=== PATIENT | male | born 1990 | race African-American/Black ===

== ENCOUNTER 2017-09-15 12:43 | Inpatient (IN) | payer OTHER ==
[2017-09-15 14:00] VITALS: BMI 23.3
--- NOTE | 2017-09-15 18:24 | HP ---
CIWA Score - CIWA Score Nausea/Vomitin-Mild Nausea/No Vomiting Muscle Tremors: 3 Anxiety: 4-Mod. Anxious/Guarded Agitation: 1-Slight > Activity Paroxysmal Sweats: 1-Minimal Palms Moist Orientation: 0-Oriented Tacttile Disturbances: 2-Mild Itch/Numbness/Burn Auditory Disturbances: 0-None Visual Disturbances: 1-Very Mild Sensitivity Headache: 2-Mild CIWA-Ar Total Score: 15 Admission ROS S - HPI Chief Complaint: withdrawal symptoms Allergies/Adverse Reactions: Allergies Allergy/AdvReac Type Severity Reaction Status Date / Time No Known Allergies Allergy Verified 09/15/17 14:35 History of Present Illness: 27 yo male with hx of alcohol dependence. Denies any other medical history., Denies suicidal / homicidal ideation. Last Detox was 1999. - Ebola screening Have you traveled outside of the country in the last 21 days: No Have you had contact with anyone from an Ebola affected area: No Have you been sick,other than usual withdrawal symptoms: No - Review of Systems Constitutional: Chills, Changes in sleep EENT: reports: Blurred Vision, Throat Swelling (when throws up) Cardiac: reports: Syncope (last episode 09/05/17 from drinking) GI: reports: Indigestion Musculoskeletal: reports: Back Pain Integumentary: reports: No Symptoms Reported Neuro: reports: Headache, Numbness, Tingling, Dizziness Endocrine: reports: No Symptoms Reported Hematology: reports: No Symptoms Reported Psychiatric: reports: Orientated x3, Anxious Other Systems: Reviewed and Negative Patient History - Patient Medical History Hx Anemia: No Hx Asthma: No Hx Chronic Obstructive Pulmonary Disease (COPD): No Hx Cancer: No Hx Cardiac Disorders: No Hx Congestive Heart Failure: No Hx Hypertension: No Hx Hypercholesterolemia: No Hx Pacemaker: No HX Cerebrovascular Accident: No Hx Seizures: No Hx Dementia: No Hx Diabetes: No Hx Gastrointestinal Disorders: No Hx Liver Disease: No Hx Genitourinary Disorders: No Hx Sexually Transmitted Disorders: No Hx Renal Disease (ESRD): No Hx Thyroid Disease: No Hx Human Immunodeficiency Virus (HIV): No Hx Hepatitis C: No Hx Depression: No Hx Suicide Attempt: No Hx Bipolar Disorder: No Hx Schizophrenia: No - Patient Surgical History Past Surgical History: Yes Hx Neurologic Surgery: No Hx Cataract Extraction: No Hx Cardiac Surgery: No Hx Lung Surgery: No Hx Breast Surgery: No Hx Breast Biopsy: No Hx Abdominal Surgery: No Hx Appendectomy: No Hx Cholecystectomy: No Hx Genitourinary Surgery: No Hx Section: No Hx Orthopedic Surgery: No Hx Hysterectomy: No Other Surgical History: bilateral inguinal hernia repairs Anesthesia Reaction: No - PPD History Previous Implant?: Yes Documented Results: Negative w/o proof Implanted On Prior [facility] Admission?: No PPD to be Administered?: Yes - Reproductive History Patient is a Female of Child Bearing Age (11 -55 yrs old): No - Smoking Cessation Smoking history: Current every day smoker Have you smoked in the past 12 months: Yes Aproximately how many cigarettes per day: 3 Hx Chewing Tobacco Use: No Initiated information on smoking cessation: Yes 'Breaking Loose' booklet given: 09/15/17 - Substance & Tx. History Hx Alcohol Use: Yes Hx Substance Use: No Substance Use Type: Alcohol Hx Substance Use Treatment: Yes (1999) - Substances Abused Alcohol Route: Oral Frequency: Daily Amount used: 1 PINT VODKA Age of first use: 15 Date of Last Use: 09/15/17 Family Disease History - Family Disease History Family Disease History: Other: Grandparent (alcoholism, ), Mother ( alive and well ) Admission Physical Exam S - Vital Signs Vital Signs: Vital Signs - 24 hr 09/15/17 13:55 Temperature 97 F L Pulse Rate 103 H Respiratory 20 Rate Blood Pressure 159/86 - Physical General Appearance: Yes: Appropriately Dressed, Alcohol on Breath, Anxious HEENTM: Yes: Hearing grossly Normal, Normal ENT Inspection, Normocephalic, Normal Voice, BRENT, Pharynx Normal, Other (dry mucous membranes) Respiratory: Yes: Chest Non-Tender, Lungs Clear, Normal Breath Sounds, No Respiratory Distress, No Accessory Muscle Use Neck: Yes: No masses,lesions,Nodules, Trachea in good position Breast: Yes: Breast Exam Deferred Cardiology: Yes: Regular Rhythm, S1, S2 Abdominal: Yes: Normal Bowel Sounds, Non Tender, Flat, Soft Genitourinary: Yes: Within Normal Limits (reports no urinary symptoms) Back: Yes: Within Normal Limits, Normal Inspection, Vertebral Tenderness (mid lower back) Extremities: Yes: Normal Capillary Refill, Normal Inspection, Normal Range of Motion, Non-Tender Neurological: Yes: leather cartridge belt maker II-XII NML intact, Fully Oriented, Alert, Motor Strength 5/5, Normal Mood/Affect, Normal Response Integumentary: Yes: Normal Color, Dry, Warm, Other (poor skin turgor) Lymphatic: Yes: Within Normal Limits - Diagnostic (1) Alcohol dependence with withdrawal Current Visit: Yes Status: Acute (2) Dehydration Current Visit: Yes Status: Acute (3) Depressed affect Current Visit: Yes Status: Acute Cleared for Admission [facility] - Detox or Rehab [facility] Level of Care: Medically Managed Detox Regimen/Protocol: Librium [facility] Breath Alcohol Content Breath Alcohol Content: 0.210 Urine Drug Screen - Results Drug Screen Negative: No Urine Drug Screen Results: TCA-Tricyclic Antidepress
[2017-09-15] MEDS ORDERED: MAGNESIUM CITRATE 300 ML BOTTLE PO PRN (18:39)
[2017-09-15] MEDS ORDERED: MENTHOL/PHENOL 1 EACH UD MM PRN (18:39)
[2017-09-15] MEDS ORDERED: guaiFENesin/D-METHORPHAN HB 10 ML UNIT-DOSE CUPS PO PRN (18:39)
[2017-09-15] MEDS ORDERED: MAGNESIUM HYDROX 2400MG/30ML ORAL SUSPENSION 30 ML CUP PO PRN (18:39)
[2017-09-15] MEDS ORDERED: NICOTINE POLACRILEX 2 MG GUM BC PRN (18:39)
[2017-09-15] MEDS ORDERED: IBUPROFEN 400 MG TABLET (FP) PO PRN (18:39)
[2017-09-15] MEDS ORDERED: P-EPHED 60MG/TRIPROLIDI 2.5MG TABLET PO PRN (18:39)
[2017-09-15] MEDS ORDERED: LOPERAMIDE HCL 2 MG CAPSULE PO PRN (18:39)
[2017-09-15] MEDS ORDERED: MAG HYDROX/AL HYDROX/SIMETH 30 ML UNIT-DOSE CUP PO PRN (18:39)
[2017-09-15] MEDS ORDERED: ACETAMINOPHEN 325 MG TABLET (FP) PO PRN (18:39)
[2017-09-15] MEDS: NICOTINE 14 MG/24 HOURS TOPICAL PATCH TD SCH (19:30)
[2017-09-15] MEDS: chlordiazePOXIDE HCL 25 MG CAPSULE PO PRN (19:31)
[2017-09-15] MEDS: THIAMINE HCL 100 MG TABLET (FP) PO SCH (22:04)
[2017-09-15] MEDS: chlordiazePOXIDE HCL 25 MG CAPSULE PO SCH (22:04)
[2017-09-15 23:42] LABS: URINE APPEARANCE CLEAR; URINE BILIRUBIN NEGATIVE (NEGATIVE); URINE BLOOD NEGATIVE (NEGATIVE); URINE COLOR YELLOW; URINE GLUCOSE (UA) NEGATIVE (NEGATIVE); URINE KETONE NEGATIVE (NEGATIVE); URINE LEUK ESTERASE TRACE (NEGATIVE); URINE NITRITE NEGATIVE (NEGATIVE); URINE UROBILINOGEN NEGATIVE mg/dL (0.2-1.0)
[2017-09-15 23:45] LABS: URINE PROTEIN 1+ (NEGATIVE)
[2017-09-15 23:54] LABS: URINE MUCUS MANY
[2017-09-16] MEDS: chlordiazePOXIDE HCL 25 MG CAPSULE PO SCH ×4 (05:38→22:14)
[2017-09-16 10:10] LABS: CHLORIDE 101 mmol/L (98-107); POTASSIUM 3.5 mmol/L (3.5-5.1); SODIUM 139 mmol/L (136-145)
[2017-09-16 10:18] LABS: HEMATOCRIT 43.9 % (35.4-49); HEMOGLOBIN 14.6 GM/dL (11.7-16.9); MCH 34.3 pg (25.7-33.7); MCHC 33.4 g/dl (32.0-35.9); MEAN CELL VOLUME 102.9 fl (80-96); MEAN PLT VOLUME 9.6 fl (7.5-11.1); PLATELET COUNT 212 K/MM3 (134-434); RBC 4.26 M/mm3 (4.00-5.60); RDW 13.9 % (11.9-15.9)
--- NOTE | 2017-09-16 10:21 | PN ---
S CIWA - CIWA Score Nausea/Vomitin-Mild Nausea/No Vomiting Muscle Tremors: 3 Anxiety: 3 Agitation: 3 Paroxysmal Sweats: 1-Minimal Palms Moist Orientation: 0-Oriented Tacttile Disturbances: 0-None Auditory Disturbances: 0-None Visual Disturbances: 0-None Headache: 0-None Present CIWA-Ar Total Score: 11 BHS Progress Note (SOAP) Subjective: tremor anxiety sweat restlessness Objective: 09/16/17 10:21 Vital Signs Temperature 98.2 F 09/16/17 09:53 Pulse Rate 86 09/16/17 09:53 Respiratory Rate 18 09/16/17 09:53 Blood Pressure 144/85 09/16/17 09:53 O2 Sat by Pulse Oximetry (%) Laboratory Last Values Urine Color Yellow 09/15/17 Unknown Urine Appearance Clear 09/15/17 Unknown Urine pH 6.0 (5.0-8.0) 09/15/17 Unknown Ur Specific [place] 1.023 (1.001-1.035) 09/15/17 Unknown Urine Protein 1+ (NEGATIVE) H 09/15/17 Unknown Urine Glucose (UA) Negative (NEGATIVE) 09/15/17 Unknown Urine Ketones Negative (NEGATIVE) 09/15/17 Unknown Urine Blood Negative (NEGATIVE) 09/15/17 Unknown Urine Nitrite Negative (NEGATIVE) 09/15/17 Unknown Urine Bilirubin Negative (NEGATIVE) 09/15/17 Unknown Urine Urobilinogen Negative mg/dL (0.2-1.0) 09/15/17 Unknown Ur Leukocyte Esterase Trace (NEGATIVE) 09/15/17 Unknown Urine WBC (Auto) 27 /hpf (3-5) 09/15/17 Unknown Urine RBC (Auto) 1 /hpf (0-3) 09/15/17 Unknown Urine Mucus Many 09/15/17 Unknown HIV 1&2 Antibody Screen Negative 09/15/17 15:00 HIV P24 Antigen Negative 09/15/17 15:00 lab noted Assessment: 09/16/17 10:21 withdrawal sx Plan: continue detox
[2017-09-16 10:23] LABS: ALBUMIN 4.3 g/dl (3.4-5.0); ALK PHOS 73 U/L (45-117); ANION GAP 9 (8-16); BILIRUBIN,TOTAL 0.6 mg/dL (0.2-1.0); BLOOD UREA NITROGEN 10 mg/dL (7-18); CALCIUM 9.1 mg/dL (8.5-10.1); CO2 29 mmol/L (21-32); GLUCOSE,RANDOM 86 mg/dL (74-106); SGOT/AST 34 U/L (15-37); SGPT/ALT 26 U/L (12-78)
[2017-09-16] MEDS: PRENATAL VITAMINS W/ FOLIC ACID TABLET (FP) PO SCH (10:47)
[2017-09-16] MEDS: NICOTINE 14 MG/24 HOURS TOPICAL PATCH TD SCH (10:48)
--- NOTE | 2017-09-16 11:22 | CONSULT ---
[facility] Psychiatric Consult - Data Date of interview: 09/16/17 Admission source: [facility] Identifying data: Pt. is a 27 year old male, single, without kids, and currently unemployed. This is patient's first admission to [facility]. Pt. admitted to for alcohol dependence. Substance Abuse History: - Smoking Cessation. Smoking history: Current every day smoker. Have you smoked in the past 12 months: Yes. Aproximately how many cigarettes per day: 3. Hx Chewing Tobacco Use: No. Initiated information on smoking cessation: Yes. 'Breaking Loose' booklet given: 09/15/17. - Substance & Tx. History. Hx Alcohol Use: Yes. Hx Substance Use: No. Substance Use Type : Alcohol. Hx Substance Use Treatment: Yes (1999). - Substances Abused. Alcohol. Route: Oral. Frequency: Daily. Amount used: 1 PINT VODKA. Age of first use: 15. Date of Last Use: 09/15/17 Medical History: Denies. Psychiatric History: Pt. denies h/o psychiatric hospitalizations, suicide attempts, and OPC. Physical/Sexual Abuse/Trauma History: Denies. Mental Status Exam - Mental Status Exam Alert and Oriented to: Time, Place, Person Cognitive Function: Good Patient Appearance: Well Groomed Mood: Euthymic Affect: Mood Congruent Patient Behavior: Cooperative Speech Pattern: Delayed Voice Loudness: Normal Thought Process: Goal Oriented Thought Disorder: Not Present Hallucinations: Denies Suicidal Ideation: Denies Homicidal Ideation: Denies Insight/Judgement: Poor Sleep: Poorly Appetite: Fair Muscle strength/Tone: Normal Gait/Station: Normal Psychiatric Findings - Problem List ([place] 1, 2,3) (1) Alcohol dependence with withdrawal Current Visit: Yes Status: Acute (2) Insomnia Current Visit: Yes Status: Acute - Initial Treatment Plan Initial Treatment Plan: Psychoeducation provided. Detoxification in progress. Ambien 10mg qhs PRN ordered for insomnia. Benefits and side effects (sleep walking) discussed. Verbal consent given. Will continue to monitor patient.
--- NOTE | 2017-09-16 14:09 | EKG ---
Test Reason : Blood Pressure : / mmHG Vent. Rate : 105 BPM Atrial Rate : 105 BPM P-R Int : 126 ms QRS Dur : 112 ms QT Int : 332 ms P-R-T Axes : 078 079 056 degrees QTc Int : 438 ms SINUS TACHYCARDIA OTHERWISE NORMAL ECG NO PREVIOUS ECGS AVAILABLE Confirmed by MD Austin, Jarrett ([id number]) on 09/16/2017 2:09:16 PM Referred By: Confirmed By:Jarrett Avila MD
[2017-09-16] MEDS: hydrOXYzine PAMOATE 50 MG CAPSULE (FP) PO PRN (14:51)
[2017-09-16] MEDS: chlordiazePOXIDE HCL 25 MG CAPSULE PO PRN (14:53)
[2017-09-16] MEDS: ZOLPIDEM TARTRATE 10 MG TABLET (PARK CARE ONLY) PO PRN (22:14)
[2017-09-16] MEDS: THIAMINE HCL 100 MG TABLET (FP) PO SCH (22:14)
[2017-09-17] MEDS: chlordiazePOXIDE HCL 25 MG CAPSULE PO SCH ×3 (06:13→18:04)
[2017-09-17] MEDS: PRENATAL VITAMINS W/ FOLIC ACID TABLET (FP) PO SCH (10:14)
[2017-09-17] MEDS: NICOTINE 14 MG/24 HOURS TOPICAL PATCH TD SCH (10:14)
[2017-09-17] MEDS: hydrOXYzine PAMOATE 50 MG CAPSULE (FP) PO PRN ×2 (10:18→18:04)
--- NOTE | 2017-09-17 11:26 | PN ---
Psychiatric Progress Note Vital Signs: Vital Signs Period Temp Pulse Resp BP Sys/Álvarez Pulse Ox Last 24 Hr 97 F-98.6 F 55-90 16-18 126-153/67-96 Date of Session: 09/17/17 Chief Complaint:: insomnia HPI: Ptient reports not sleeping weel, reports good response on Janell burton to admission, asking for Vistaryl 50mg po prn q4 for anxiety Current Medications: Active Medications Generic Name Dose Route Start Last Admin Trade Name Freq PRN Reason Stop Dose Admin Acetaminophen 650 mg 09/15/17 18:39 Tylenol - PO Q4H PRN FEVER Al Hydroxide/Mg Hydroxide 30 ml 09/15/17 18:39 Mylanta Oral Suspension - PO Q6H PRN DYSPEPSIA Chlordiazepoxide HCl 25 mg 09/16/17 23:00 09/17/17 10:16 Librium - PO 09/17/17 17:01 25 mg [id number] KAIA Administration Chlordiazepoxide HCl 15 mg 09/17/17 23:00 Librium - PO 09/18/17 17:01 [id number] KAIA Chlordiazepoxide HCl 25 mg 09/15/17 18:39 09/16/17 14:53 Librium - PO 09/18/17 18:38 25 mg Q4H PRN Administration WITHDRAWAL(CONT SUBST) Chlordiazepoxide HCl 10 mg 09/18/17 23:00 Librium - PO 09/19/17 17:01 [id number] KAIA Chlordiazepoxide HCl 50 mg 09/17/17 14:00 Librium - PO 09/17/17 14:01 ONCE ONE Cyclobenzaprine HCl 5 mg 09/17/17 14:00 Cyclobenzaprine Hcl PO TID KAIA Eucalyptus/Menthol/Phenol/Sorbitol 1 each 09/15/17 18:39 Cepastat Lozenge - MM Q4H PRN SORE THROAT Guaifenesin 10 ml 09/15/17 18:39 09/16/17 09:30 Robitussin Dm - PO 10 ml Q6H PRN Administration COUGH Hydroxyzine Pamoate 50 mg 09/15/17 18:39 09/17/17 10:18 Vistaril - PO 50 mg Q4H PRN Administration AGITATION Ibuprofen 400 mg 09/15/17 18:39 09/15/17 20:50 Motrin - PO 400 mg Q6H PRN Administration PAIN LEVEL 4-6 Loperamide HCl 4 mg 09/15/17 18:39 Imodium - PO Q6H PRN DIARRHEA Magnesium Citrate 300 ml 09/15/17 18:39 Citroma - PO Q48H PRN CONSTIPATION Magnesium Hydroxide 30 ml 09/15/17 18:39 Milk Of Magnesia - PO DAILY PRN CONSTIPATION Nicotine 14 mg 09/15/17 18:45 09/17/17 10:14 Nicoderm Patch - TD 14 mg DAILY KAIA Administration Nicotine Polacrilex 2 mg 09/15/17 18:39 Nicorette Gum - BC Q2H PRN NICOTINE REPLACEMENT RX Multivit/Folic Acid/Iron 1 tab 09/16/17 10:00 09/17/17 10:14 Vitamins (Sjr) - PO 1 tab DAILY KAIA Administration Pseudoephedrine/Triprolidine 1 combo 09/15/17 18:39 Actifed - PO TID PRN NASAL CONGESTION Thiamine HCl 100 mg 09/15/17 22:00 09/16/17 22:14 Vitamin B1 - PO 100 mg HS KAIA Administration Zolpidem Tartrate 10 mg 09/16/17 22:00 09/16/17 22:14 Ambien - PO 09/19/17 21:59 10 mg HS PRN Administration INSOMNIA Medication(s) Change(s): None Mental Status Exam - Mental Status Exam Alert and Oriented to: Person Cognitive Function: Fair Patient Appearance: Unkempt Mood: Sad Affect: Mood Congruent Patient Behavior: Cooperative Speech Pattern: Delayed Voice Loudness: Moderately Soft/Quiet Thought Process: Goal Oriented Thought Disorder: Being Controlled Hallucinations: Denies Suicidal Ideation: Denies Homicidal Ideation: Denies Insight/Judgement: Fair Sleep: Difficulty falling asleep Appetite: Fair Muscle strength/Tone: Normal Gait/Station: Normal Additional Comments: Observation. Continue detox protocol Psychiatric Treatment Plan - Problem List (1) Alcohol induced insomnia Current Visit: Yes (2) Alcohol-induced mood disorder Current Visit: Yes (3) Alcohol dependence with withdrawal Current Visit: Yes Initial treatment plan: Observation. Continue detox protocol
--- NOTE | 2017-09-17 11:39 | PN ---
S CIWA - CIWA Score Nausea/Vomitin Muscle Tremors: 3 Anxiety: 3 Agitation: 3 Paroxysmal Sweats: 1-Minimal Palms Moist Orientation: 0-Oriented Tacttile Disturbances: 1-Very Mild Itch/Numbness Auditory Disturbances: 1-Very Mild Visual Disturbances: 0-None Headache: 2-Mild CIWA-Ar Total Score: 17 BHS Progress Note (SOAP) Subjective: ALERT,IRRITABLE,ANXIOUS,INTERRUPTED SLEEP Objective: 09/17/17 11:36 Vital Signs Temperature 97.6 F 09/17/17 10:00 Pulse Rate 90 09/17/17 10:00 Respiratory Rate 18 09/17/17 10:00 Blood Pressure 145/90 09/17/17 10:00 O2 Sat by Pulse Oximetry (%) EKG SINUS TACHYCARDIA 105/MIN Laboratory Last Values WBC 6.0 K/mm3 (4.0-10.0) 09/16/17 06:00 RBC 4.26 M/mm3 (4.00-5.60) 09/16/17 06:00 Hgb 14.6 GM/dL (11.7-16.9) 09/16/17 06:00 Hct 43.9 % (35.4-49) 09/16/17 06:00 MCV 102.9 fl (80-96) H 09/16/17 06:00 MCH 34.3 pg (25.7-33.7) H 09/16/17 06:00 MCHC 33.4 g/dl (32.0-35.9) 09/16/17 06:00 RDW 13.9 % (11.9-15.9) 09/16/17 06:00 Plt Count 212 K/MM3 (134-434) 09/16/17 06:00 MPV 9.6 fl (7.5-11.1) 09/16/17 06:00 Sodium 139 mmol/L (136-145) 09/16/17 06:00 Potassium 3.5 mmol/L (3.5-5.1) 09/16/17 06:00 Chloride 101 mmol/L (98-107) 09/16/17 06:00 Carbon Dioxide 29 mmol/L (21-32) 09/16/17 06:00 Anion Gap 9 (8-16) 09/16/17 06:00 BUN 10 mg/dL (7-18) 09/16/17 06:00 Creatinine 1.0 mg/dL (0.7-1.3) 09/16/17 06:00 Creat Clearance w eGFR > 60 (>60) 09/16/17 06:00 Random Glucose 86 mg/dL (74-106) 09/16/17 06:00 Calcium 9.1 mg/dL (8.5-10.1) 09/16/17 06:00 Total Bilirubin 0.6 mg/dL (0.2-1.0) 09/16/17 06:00 AST 34 U/L (15-37) 09/16/17 06:00 ALT 26 U/L (12-78) 09/16/17 06:00 Alkaline Phosphatase 73 U/L (45-117) 09/16/17 06:00 Total Protein 8.0 g/dl (6.4-8.2) 09/16/17 06:00 Albumin 4.3 g/dl (3.4-5.0) 09/16/17 06:00 Urine Color Yellow 09/15/17 Unknown Urine Appearance Clear 09/15/17 Unknown Urine pH 6.0 (5.0-8.0) 09/15/17 Unknown Ur Specific [place] 1.023 (1.001-1.035) 09/15/17 Unknown Urine Protein 1+ (NEGATIVE) H 09/15/17 Unknown Urine Glucose (UA) Negative (NEGATIVE) 09/15/17 Unknown Urine Ketones Negative (NEGATIVE) 09/15/17 Unknown Urine Blood Negative (NEGATIVE) 09/15/17 Unknown Urine Nitrite Negative (NEGATIVE) 09/15/17 Unknown Urine Bilirubin Negative (NEGATIVE) 09/15/17 Unknown Urine Urobilinogen Negative mg/dL (0.2-1.0) 09/15/17 Unknown Ur Leukocyte Esterase Trace (NEGATIVE) 09/15/17 Unknown Urine WBC (Auto) 27 /hpf (3-5) 09/15/17 Unknown Urine RBC (Auto) 1 /hpf (0-3) 09/15/17 Unknown Urine Mucus Many 09/15/17 Unknown RPR Titer Nonreactive (NONREACTIVE) 09/16/17 06:00 Hepatitis C Antibody 0.2 s/co ratio (0.0-0.9) 09/15/17 06:00 HIV 1&2 Antibody Screen Negative 09/15/17 15:00 HIV P24 Antigen Negative 09/15/17 15:00 Assessment: 09/17/17 11:38 WITHDRAWAL SYMPTOM Plan: CONTINUE DETOX,INSOMNIA,PSYCHIATRIC EVALUATION
[2017-09-17] MEDS ORDERED: chlordiazePOXIDE HCL 25 MG CAPSULE PO ONE (14:00)
[2017-09-17] MEDS: CYCLOBENZAPRINE HCL 5 MG TABLET PO SCH ×2 (14:40→22:09)
[2017-09-17] MEDS: THIAMINE HCL 100 MG TABLET (FP) PO SCH (22:09)
[2017-09-17] MEDS: chlordiazePOXIDE 5 MG CAPSULE PO SCH (22:10)
[2017-09-17] MEDS: ZOLPIDEM TARTRATE 10 MG TABLET (PARK CARE ONLY) PO PRN (23:45)
[2017-09-18] MEDS: chlordiazePOXIDE 5 MG CAPSULE PO SCH ×3 (06:26→17:34)
[2017-09-18] MEDS: CYCLOBENZAPRINE HCL 5 MG TABLET PO SCH ×3 (06:26→22:10)
[2017-09-18] MEDS: hydrOXYzine PAMOATE 50 MG CAPSULE (FP) PO PRN (09:11)
[2017-09-18] MEDS: NICOTINE 14 MG/24 HOURS TOPICAL PATCH TD SCH (10:26)
[2017-09-18] MEDS: PRENATAL VITAMINS W/ FOLIC ACID TABLET (FP) PO SCH (10:27)
--- NOTE | 2017-09-18 11:39 | PN ---
S Progress Note (SOAP) Subjective: ALERT,ANXIOUS,IRRITABLE,INTERRUPTED SLEEP Objective: 09/18/17 11:38 Vital Signs Temperature 97.5 F L 09/18/17 10:00 Pulse Rate 66 09/18/17 10:00 Respiratory Rate 18 09/18/17 10:00 Blood Pressure 131/85 09/18/17 10:00 O2 Sat by Pulse Oximetry (%) Assessment: 09/18/17 11:38 WITHDRAWAL SYMPTOM Plan: CONTINUE DETOX,DISCHARGE IN AM
[2017-09-18] MEDS: chlordiazePOXIDE HCL 25 MG CAPSULE PO PRN (13:54)
[2017-09-18] MEDS: chlordiazePOXIDE HCL 10 MG CAPSULE PO SCH (22:10)
[2017-09-18] MEDS: THIAMINE HCL 100 MG TABLET (FP) PO SCH (22:10)
[2017-09-18] MEDS: ZOLPIDEM TARTRATE 10 MG TABLET (PARK CARE ONLY) PO PRN (22:10)
[2017-09-19] MEDS: hydrOXYzine PAMOATE 50 MG CAPSULE (FP) PO PRN ×3 (01:14→10:41)
[2017-09-19] MEDS: CYCLOBENZAPRINE HCL 5 MG TABLET PO SCH (06:01)
[2017-09-19] MEDS: chlordiazePOXIDE HCL 10 MG CAPSULE PO SCH ×2 (06:01→10:38)
[2017-09-19 10:07] VITALS: BP 132/81; PULSE 82; TEMP 97.3
[2017-09-19] MEDS: PRENATAL VITAMINS W/ FOLIC ACID TABLET (FP) PO SCH (10:38)
[2017-09-19] MEDS: NICOTINE 14 MG/24 HOURS TOPICAL PATCH TD SCH (10:38)
--- NOTE | 2017-09-19 10:40 | DS ---
[facility] Detox Discharge Summary Admission Date: 09/15/17 Discharge Date: 09/19/17 - History Present History: Alcohol Dependence Additional Comments: FOLLOW UP WITH AFTER CARE PROGRAM ARRANGEMENT Pertinent Past History: INSOMNIA - Physical Exam Results Vital Signs: Vital Signs Temperature 97.3 F L 09/19/17 10:06 Pulse Rate 82 09/19/17 10:06 Respiratory Rate 09/19/17 10:06 Blood Pressure 132/81 09/19/17 10:06 O2 Sat by Pulse Oximetry (%) Pertinent Admission Physical Exam Findings: WITHDRAWAL SYMPTOM - Treatment Hospital Course: Detox Protocol Followed, Detoxed Safely, Responded well, Discharged Condition Good, Rehab Referral Accepted Patient has Accepted a Rehab Referral to: [facility] - Medication Discharge Medications: Ambulatory Orders Hydroxyzine Pamoate [Vistaril -] 50 mg PO Q6H PRN #30 capsule 09/19/17 - AMA Did Patient Leave Against Medical Advice: No
== END 2017-09-19 12:30 | disposition home or self-care (01) | DRG 775 ==
LOC: YASAS 12:43 → Y6N 18:35
PROVIDERS: ADMIT Internal Medicine; ATTEND Internal Medicine
PROC: HZ2ZZZZ Detoxification Services for Substance Abuse Treatment (ICD-10-PCS; principal; 2017-09-15)
DX: F10.24 Alcohol dependence with alcohol-induced mood disorder (principal); F10.282 Alcohol dependence with alcohol-induced sleep disorder; R45.89 Other symptoms and signs involving emotional state; G47.00 Insomnia, unspecified; E86.0 Dehydration
CPT/HCPCS: 36415; 80053; 81003; 81015; 85027; 86593; 86803; 87389; 93005; 93010